=== PATIENT | male | born 1985 | race African-American/Black ===

== ENCOUNTER 2018-04-11 09:07 | Emergency (ER) | payer OTHER ==
[~2018-04-11] VITALS: Ht 195.6 cm; Wt 105.7 kg
[2018-04-11 09:17] VITALS: BP 145/98
[2018-04-11] MEDS ORDERED: NOHOMEMEDICATIONS (09:19)
[2018-04-11] MEDS ORDERED: GRISEOFULVIN500 MG PO (09:29)
== END 2018-04-11 09:35 | disposition home or self-care (01) ==
LOC: M.ERS 09:07
DX: B35.0 Tinea barbae and tinea capitis (principal)